=== PATIENT | male | born 1985 | race Caucasian/White ===

== ENCOUNTER 2021-08-11 17:08 | Outpatient (CLI) | payer OTHER | END 2021-08-11 17:09 | disposition critical access hospital (66) | LOC: EMS 17:08 | DX: R07.9 Chest pain, unspecified (principal); R25.1 Tremor, unspecified | CPT/HCPCS: A0425; A0427 ==

== ENCOUNTER 2021-08-11 17:25 | Emergency (ER) | payer OTHER ==
[2021-08-11 17:53] LABS: BASOPHILS # (AUTO) 0.1 10^3/uL (0.0-0.1); BASOPHILS % (AUTO) 0.8 %; EOSINOPHILS # (AUTO) 0.3 10^3/uL (0.0-0.7); EOSINOPHILS % (AUTO) 2.3 %; HCT - HEMATOCRIT 49.8 % (42.0-52.0); HGB - HEMOGLOBIN 17.3 g/dL (14.0-18.0); LYMPHOCYTES # (AUTO) 5.5 10^3/uL (1.5-3.5); LYMPHOCYTES % (AUTO) 46.9 %; MEAN CORPUSCULAR HEMOGLOBIN 30.6 pg (27.0-31.0); MEAN CORPUSCULAR HGB CONC 34.7 g/dL (32.0-36.0); MEAN CORPUSCULAR VOLUME 88.1 fL (80.0-94.0); MONOCYTES # (AUTO) 0.7 10^3/uL (0.0-1.0); MONOCYTES % (AUTO) 6.2 %; NEUTROPHILS # (AUTO) 5.1 10^3/uL (1.5-6.6); NEUTROPHILS % (AUTO) 43.5 %; PLT - PLATELET COUNT 276 10^3/uL (130-450); RED BLOOD COUNT 5.65 10^6/uL (4.70-6.10); RED CELL DISTRIBUTION WIDTH 12.1 % (12.0-15.0); WHITE BLOOD COUNT 11.8 x10^3/uL (4.8-10.8)
[2021-08-11] MEDS ORDERED: LORazepam 2 MG/ML VIAL IVP STA (17:54)
[2021-08-11] MEDS ORDERED: SODIUM CHLORIDE 0.9% 1,000 ML IV STA (17:55)
[2021-08-11] MEDS ORDERED: HYDROmorphone 1 MG/ML CARPUJECT IVP STA (17:55)
--- NOTE | 2021-08-11 17:56 | XRAY Report ---
PROCEDURE: Chest 1 View X-Ray INDICATIONS: Chest Pain TECHNIQUE: One view of the chest was acquired. COMPARISON: None FINDINGS: Surgical changes and devices: None. Lungs and pleura: No pleural effusions or pneumothorax. Lungs are clear. Mediastinum: Mediastinal contours appear normal. Heart size is normal. Bones and chest wall: No suspicious bony lesions. Overlying soft tissues appear unremarkable. IMPRESSION: No acute process. Reviewed by: Marielena Funez MD on 08/11/2021 5:55 PM PDT Approved by: Marielena Funez MD on 08/11/2021 5:55 PM PDT Station ID: [id number]
--- NOTE | 2021-08-11 18:01 | ED Physician Documentation ---
History of Present Illness - Stated complaint Stated Complaint: CP - Chief complaint Chief Complaint: Cardiac - Additonal information Additional information: 36-year-old male presents the emergency department for evaluation of sudden onset chest pain and pressure. Began about 15 minutes after smoking cannabis. However he is a daily cannabis smoker and has not used any new forms of cannabis and he typically gets it from a dispensary. He reports that the chest pain is severe pressure-like. He is quite anxious in the room moaning frequently. He does have a history of hypertension as well as daily tobacco use. He is unsure of his family history of coronary artery disease. Patient was given 325 of aspirin as well as 1 of nitro by EMS. No change in symptoms. Patient denies any recent travel, immobilization, hormone use, history of DVT or cancer. No unilateral leg swelling. He denies pleuritic chest pain. Past medical history: Hypertension, anxiety, depression Meds: Amlodipine, losartan, Depakote, Abilify Review of Systems Constitutional: reports: Reviewed and negative Eyes: reports: Reviewed and negative Throat: reports: Reviewed and negative Cardiac: reports: Chest pain / pressure, Palpitations. denies: Pedal edema, Calf pain Respiratory: denies: Dyspnea, Cough GI: reports: Reviewed and negative : reports: Reviewed and negative Skin: reports: Reviewed and negative Musculoskeletal: reports: Reviewed and negative PD PAST MEDICAL HISTORY - Allergies Allergies/Adverse Reactions: Allergies Allergy/AdvReac Type Severity Reaction Status Date / Time No Known Drug Allergies Allergy Verified 08/11/21 17:39 PD ED PE EXPANDED - General General: Alert, Anxious, In Pain - Cardiac Cardiac: Tachy, Radial strong equal, Cap refill < 2 sec, Prolonged cap refill. No: Murmur Present - Respiratory Respiratory: Clear to ausultation leandro. No: Distress, Labored - Abdomen Abdomen: Normal Bowel sounds. No: Tender to palpation - Back Back: Normal exam. No: CVA TTP right, CVA TTP left - Neuro Neuro: Alert and Oriented X 3, CNII-XII intact - GCS Eye Opening: Spontaneous Motor: Obeys Commands Verbal: Oriented Total: 15 Results - Vitals Vitals: Vital Signs - 24 hr 08/11/21 08/11/21 08/11/21 17:39 19:26 20:10 Temperature 36.5 C Heart Rate 120 H 74 83 Respiratory 16 18 20 Rate Blood Pressure 169/99 H 126/84 H 108/62 O2 Saturation 98 92 96 Oxygen O2 Source Room air - EKG (time done) 1743 Rate: Rate (enter#) (127) Rhythm: Sinus tachycardia [place]: Normal Intervals: Normal [place]. No: Prolonged QT QRS: Normal Ischemia: Non specific changes Compare to prior EKG: Old EKG unavailable Computer interpretation: Agree with computer - Labs Labs: Laboratory Tests 08/11/21 08/11/21 08/11/21 17:40 17:40 17:40 WBC 11.8 H RBC 5.65 Hgb 17.3 Hct 49.8 MCV 88.1 MCH 30.6 MCHC 34.7 RDW 12.1 Plt Count 276 MPV 11.0 Neut # (Auto) 5.1 Lymph # (Auto) 5.5 H [place] # (Auto) 0.7 Eos # (Auto) 0.3 Baso # (Auto) 0.1 Absolute Nucleated RBC 0.00 Band Neuts % (Manual) Not Reportable Abnorm Lymph % (Manual) Not Reportable Nucleated RBC % 0.0 Neutrophils # (Manual) Not Reportable Lymphocytes # (Manual) Not Reportable Monocytes # (Manual) Not Reportable Eosinophils # (Manual) Not Reportable Basophils # (Manual) Not Reportable Differential Comment MANUAL=AUTO DIFF Manual Slide Review Indicated Platelet Estimate NORMAL (130-450,000) Platelet Morphology NORMAL APPEARANCE RBC Morph Micro Appear NORMAL APPEARANCE D-Dimer Sodium 140 Potassium 3.4 L Chloride 103 Carbon Dioxide 23 Anion Gap 14.0 H BUN 9 Creatinine 0.9 Estimated GFR (MDRD) 95 Glucose 105 H Calcium 9.3 Total Bilirubin 0.6 AST 23 ALT 27 Alkaline Phosphatase 62 Troponin I High Sens 2.7 Total Protein 7.4 Albumin 4.4 Globulin 3.0 Albumin/Globulin Ratio 1.5 Lipase 33 08/11/21 08/11/21 18:00 19:54 WBC RBC Hgb Hct MCV MCH MCHC RDW Plt Count MPV Neut # (Auto) Lymph # (Auto) [place] # (Auto) Eos # (Auto) Baso # (Auto) Absolute Nucleated RBC Band Neuts % (Manual) Abnorm Lymph % (Manual) Nucleated RBC % Neutrophils # (Manual) Lymphocytes # (Manual) Monocytes # (Manual) Eosinophils # (Manual) Basophils # (Manual) Differential Comment Manual Slide Review Platelet Estimate Platelet Morphology RBC Morph Micro Appear D-Dimer 240.9 Sodium Potassium Chloride Carbon Dioxide Anion Gap BUN Creatinine Estimated GFR (MDRD) Glucose Calcium Total Bilirubin AST ALT Alkaline Phosphatase Troponin I High Sens 3.5 Total Protein Albumin Globulin Albumin/Globulin Ratio Lipase - Rads (name of study) CXR Radiology: Final report received (no acute cardiopulmonary process) PD MEDICAL DECISION MAKING - ED course Complexity details: reviewed results, re-evaluated patient, considered differential, d/w patient ED course: 36-year-old male presents emergency department for evaluation of acute onset left-sided chest pain that felt like a pressure and pounding in his chest. This did occur shortly after smoking cannabis however he reports that he is a daily cannabis user. Screening EKG initially showed significant tachycardia with a rate of 130. Chest x-ray was unremarkable. No focal opacities no pneumothorax. Given that he presented just after the onset of pain 2 troponins were done and both are negative. A D-dimer was negative as well. Patient initially presented appearing quite anxious he was given 1 mg of Ativan as well as 1 mg of Dilaudid. Following administration of these medications his heart rate has normalized here in the ER and he is now free of chest pain. The exact etiology of his chest pain is not clear though I do suspect it is likely an anxiety/panic attack. Patient's heart score is 1 for hypertension only. I have advised close follow-up with his primary care provider. You may benefit from a reevaluation with a Holter monitor or echocardiogram in the future. I did advise that he attempt to abstain from cannabis for at least a few days. Departure - Departure Disposition: 01 Home, Self Care Clinical Impression: Chest pain Qualifiers: Chest pain type: unspecified Qualified Code(s): R07.9 - Chest pain, unspecified Condition: Stable Record reviewed to determine appropriate education?: Yes Instructions: ED Chest Pain Atypical Unkn Cause Comments: Jameel you were seen in the emergency department today for chest pain that began about 15 minutes after cannabis use. Initially your EKG showed a very high heart rate but there were no other worrisome findings. Your screening labs including 2 troponins were negative. The likelihood that this was due to a heart attack is very low. We also did a lab called a D-dimer to check for your risk factors to make clots abnormally and that was also normal and not elevated. Your chest x-ray did not show any pneumonia or findings of a collapsed lung. Here in the emergency department you were given some Dilaudid as well as Ativan. As we discussed at the bedside you appeared fairly anxious and I suspect that you may have been having an anxiety or panic attack though you certainly do not seem to have any reason to have had one. I would recommend that you discuss this ED visit with your primary care provider. I also recommend that you abstain from cannabis use for at least a few days. At any point your symptoms return, you develop chest pain that is worse with exertion, you have any fainting episodes or become severely short of air then please return immediately to the ER for a second evaluation
[2021-08-11 18:02] LABS: ALBUMIN 4.4 g/dL (3.2-5.5); ALBUMIN/GLOBULIN RATIO 1.5 (1.0-2.2); BILIRUBIN,TOTAL 0.6 mg/dL (0.2-1.0); CALCIUM 9.3 mg/dL (8.5-10.3); CREATININE 0.9 mg/dL (0.6-1.2); POTASSIUM 3.4 mmol/L (3.5-5.0); SLIDE REVIEW? Indicated; TOTAL PROTEIN 7.4 g/dL (6.7-8.2)
[2021-08-11 18:47] LABS: DIFFERENTIAL COMMENT MANUAL=AUTO DIFF; PLATELET ESTIMATE, MANUAL NORMAL (130-450,000) (NORMAL); PLATELET MORPHOLOGY NORMAL APPEARANCE (NORMAL); RBC MORPHOLOGY (MULTIPLE) NORMAL APPEARANCE (NORMAL)
[2021-08-11 20:40] VITALS: BP 121/74
== END 2021-08-11 20:45 | disposition home or self-care (01) ==
LOC: ED 17:25
DX: R07.89 Other chest pain (principal); R00.0 Tachycardia, unspecified; F41.9 Anxiety disorder, unspecified; I10 Essential (primary) hypertension; F17.200 Nicotine dependence, unspecified, uncomplicated
CPT/HCPCS: 36415; 71045; 80053; 83690; 84484; 85025; 85379; 93005; 96374; 99284; J1170; J2060

== ENCOUNTER 2023-01-25 05:23 | Emergency (ER) | payer OTHER ==
--- NOTE | 2023-01-25 05:49 | ED Physician Documentation ---
History of Present Illness - Stated complaint Stated Complaint: BODY PX - Chief complaint Chief Complaint: Cardiac - History obtained from History obtained from: Patient - History of Present Illness Pain level max: 0 Pain level now: 0 - Additonal information Additional information: HPI from patient. He says he had two "energy drinks" this evening and he feels his symptoms were caused by, or at least mostly attributable to, this caffeine intake.Patient c/o generalized tremulousness, anxiety, rapid palpitations. He has had occasional skipped-beat sensation with his palpitations. Denies chest pain, denies lightheadedness. His symptoms have already improved without specific intervention by the time of this evaluation. Review of Systems Constitutional: denies: Fever, Chills, Sweats Cardiac: reports: Palpitations. denies: Chest pain / pressure, Pedal edema, Calf pain Respiratory: reports: Reviewed and negative GI: reports: Reviewed and negative PD PAST MEDICAL HISTORY - Past Medical History Past Medical History: Yes Cardiovascular: Hypertension Psych: Depression, Bipolar disorder - Past Surgical History Past Surgical History: Yes HEENT: Tonsil/Adenoidectomy - Present Medications Home Medications: Ambulatory Orders Medication Instructions Recorded Confirmed ARIPiprazole [Abilify] 5 mg PO DAILY 01/25/23 01/25/[address] [Depbrandon Dr] 1,000 mg PO HS 01/25/23 01/25/23 Losartan Potassium [Cozaar] 100 mg PO DAILY 01/25/23 01/25/23 amLODIPine [Norvasc] 5 mg PO DAILY 01/25/23 01/25/23 traZODone [Desyrel] 50 mg PO HS PRN 01/25/23 01/25/23 - Allergies Allergies/Adverse Reactions: Allergies Allergy/AdvReac Type Severity Reaction Status Date / Time No Known Drug Allergies Allergy Verified 01/25/23 05:29 - Social History Does the pt smoke?: Yes Smoking Status: Current every day smoker Does the pt drink ETOH?: No Does the pt have substance abuse?: No - Immunizations Immunizations are current?: Yes - POLST Patient has POLST: No PD ED PE NORMAL - Vitals Vital signs reviewed: Yes - General General: Alert and oriented X 3, No acute distress, Well developed/nourished - HEENT HEENT: Moist mucous membranes - Neck Neck: Supple, no meningeal sign - Cardiac Cardiac: RRR, No murmur, No gallop, No rub - Respiratory Respiratory: No respiratory distress, Clear bilaterally - Abdomen Abdomen: Soft, Non tender - Derm Derm: Normal color, Warm and dry - Extremities Extremities: No edema Results - Vitals Vitals: Vital Signs - 24 hr 01/25/23 01/25/23 05:32 05:36 Temperature 36.8 C Heart Rate 77 67 Respiratory 16 16 Rate Blood Pressure 173/94 H 154/97 H O2 Saturation 100 97 Oxygen O2 Source Room air - EKG (time done) No standard instances EKG releavant findings:: EKG personally interpreted by author of this note. Relevant findings are: Rate: Rate (enter#) (73) Rhythm: NSR [place]: Normal Intervals: Normal [place] QRS: Normal Ischemia: Normal ST segments - Labs Labs: Laboratory Tests 01/25/23 01/25/23 06:34 06:34 WBC 7.1 RBC 5.16 Hgb 15.2 Hct 43.9 MCV 85.1 MCH 29.5 MCHC 34.6 RDW 11.9 L Plt Count 231 MPV 10.5 Neut # (Auto) 4.6 Lymph # (Auto) 1.7 [place] # (Auto) 0.5 Eos # (Auto) 0.2 Baso # (Auto) 0.1 Absolute Nucleated RBC 0.00 Nucleated RBC % 0.0 Sodium 138 Potassium 3.8 Chloride 103 Carbon Dioxide 26 Anion Gap 9.0 BUN 10 Creatinine 0.8 Estimated GFR (MDRD) 108 Glucose 107 H Calcium 8.5 PD Medical Decision Making - ED course Complexity details: reviewed results, re-evaluated patient, considered differential, d/w patient Departure - Departure Disposition: 01 Home, Self Care Clinical Impression: Palpitations Condition: Good Instructions: ED Palpitations Comments: Your EKG was normal and there were no significant findings on the blood test performed tonight. During the period of ER observation, your vital signs were normal and your cardiac (heart) rhythm and rate were normal throughout your stay. The cause of your symptoms is not apparent at this time, but, as we discussed, it would be best to avoid excessive caffeine intake as this can cause or, at least, contribute to palpitations. Discharge Date/Time: 01/25/23 07:49
[2023-01-25 06:41] LABS: BASOPHILS # (AUTO) 0.1 10^3/uL (0.0-0.1); BASOPHILS % (AUTO) 0.8 %; EOSINOPHILS # (AUTO) 0.2 10^3/uL (0.0-0.7); EOSINOPHILS % (AUTO) 2.1 %; HCT - HEMATOCRIT 43.9 % (42.0-52.0); HGB - HEMOGLOBIN 15.2 g/dL (14.0-18.0); LYMPHOCYTES # (AUTO) 1.7 10^3/uL (1.5-3.5); LYMPHOCYTES % (AUTO) 24.6 %; MEAN CORPUSCULAR HEMOGLOBIN 29.5 pg (27.0-31.0); MEAN CORPUSCULAR HGB CONC 34.6 g/dL (32.0-36.0); MEAN CORPUSCULAR VOLUME 85.1 fL (80.0-94.0); MEAN PLATELET VOLUME 10.5 fL (7.4-11.4); MONOCYTES # (AUTO) 0.5 10^3/uL (0.0-1.0); MONOCYTES % (AUTO) 6.6 %; NEUTROPHILS # (AUTO) 4.6 10^3/uL (1.5-6.6); NEUTROPHILS % (AUTO) 65.6 %; PLT - PLATELET COUNT 231 10^3/uL (130-450); RED BLOOD COUNT 5.16 10^6/uL (4.70-6.10); RED CELL DISTRIBUTION WIDTH 11.9 % (12.0-15.0); WHITE BLOOD COUNT 7.1 x10^3/uL (4.8-10.8)
[2023-01-25 06:42] VITALS: BP 154/97
[2023-01-25 06:47] LABS: CALCIUM 8.5 mg/dL (8.5-10.3); CREATININE 0.8 mg/dL (0.6-1.2); POTASSIUM 3.8 mmol/L (3.5-5.0)
== END 2023-01-25 07:49 | disposition home or self-care (01) ==
LOC: ED 05:23
DX: R00.2 Palpitations (principal); F17.200 Nicotine dependence, unspecified, uncomplicated
CPT/HCPCS: 36415; 80048; 85025; 93005; 99283

== ENCOUNTER 2023-06-03 23:26 | Emergency (ER) | payer OTHER ==
[2023-06-03 23:51] VITALS: BP 159/92
== END 2023-06-04 00:04 | disposition left against medical advice (07) ==
LOC: ED 23:26
DX: Z53.21 Procedure and treatment not carried out due to patient leaving prior to being seen by health care provider (principal)
CPT/HCPCS: 80053; 83690; 84484; 85025; 93005